=== PATIENT | male | born 1950 | race Asian ===

== ENCOUNTER 2022-12-18 12:32 | Emergency (ER) | payer OTHER ==
[~2022-12-18] VITALS: Ht 154.9 cm; Wt 63.6 kg
[2022-12-18 12:52] VITALS: BP 126/74; PULSE 88; RESP 16; TEMP 98.6
== END 2022-12-18 13:37 | disposition left against medical advice (07) ==
LOC: EMS 12:32
DX: S61.212A Laceration without foreign body of right middle finger without damage to nail, initial encounter (principal); Z53.21 Procedure and treatment not carried out due to patient leaving prior to being seen by health care provider; W31.89XA Contact with other specified machinery, initial encounter; Y93.89 Activity, other specified; Y92.89 Other specified places as the place of occurrence of the external cause; Y99.8 Other external cause status
CPT/HCPCS: 99281; Z7502